=== PATIENT | female | born 1935 ===

== ENCOUNTER 2024-03-29 15:22 | Inpatient (IN) | payer MEDICARE, OTHER ==
[~2024-03-29] VITALS: Ht 152.4 cm; Wt 49.2 kg
[~2024-03-29 15:22] MED LIST: ARICEPT10 MG PO; ATIVAN 1MG T1 MG/TAB PO; D3-5050000 IU PO; FOSAMAX 70MG TA70 MG PO; INDERAL 20MG20 MG PO; IPRATROPIUM BROM3 M1 IH; NORCO 325 MG-7.1 TAB PO; PROAIR HFA0.09 MG/AC IH; RT ADVAIR 128 DISKUS IH; TYLENOL 500MG500 MG PO; ZOLOFT 100MG100 MG PO
[2024-03-29] MEDS ORDERED: cefTRIAXone 1 G in Water For Injection,Sterile 10 ML IV ONE (15:45)
[2024-03-29] MEDS ORDERED: Albuterol/Ipratropium 3 MG-0.5 MG/3 ML Neb Soln IH ONE (15:45)
[2024-03-29] MEDS ORDERED: NS 500 ML IV ONE (15:45)
[2024-03-29] MEDS ORDERED: methylPREDNISolone Sod Succ 125 MG/2 ML VIAL IV ONE (15:45)
[2024-03-29] MEDS ORDERED: Azithromycin 250 MG TAB PO ONE (15:45)
[2024-03-29] MEDS ORDERED: Azithromycin 500 MG in NS 250 ML IV ONE (16:00)
[2024-03-29 16:02] LABS: HEMOGLOBIN 10.3 g/dl (12.5-16.0); MEAN CELL VOLUME 97 fl (80.0-100.0); MEAN CORPUSCULAR HEMOGLOBIN 28 pg (27-31); MEAN CORPUSCULAR HGB CONC 29 g/dl (33.0-37.0); MEAN PLATELET VOLUME 9.7 fl (7.4-10.4); PLATELET COUNT 291 K/mm3 (130-400); RED BLOOD COUNT 3.64 M/mm3 (4.10-5.30); REDCELL DISTRIBUTION WIDTH-CV 16.6 % (11.5-14.5)
[2024-03-29 16:03] LABS: HEMATOCRIT 35.2 % (37.0-47.0)
[2024-03-29 16:17] LABS: ALBUMIN 2.7 g/dL (3.4-4.8); BILIRUBIN,TOTAL 0.7 mg/dL (0.2-1.2); CALCIUM 8.9 mg/dL (8.4-10.2); CREATININE, serum 3.4 mg/dL (0.57-1.11); TOTAL PROTEIN 7.7 g/dl (6.2-8.1)
[2024-03-29] MEDS ORDERED: oxyCODONE Oral Soln 5 MG/5 ML UD PO ONE (16:30)
--- NOTE | 2024-03-29 16:37 | NUR ---
Food Service Specialist consulted in the ED for patient who arrived in respiratory distress. Family considering options for care including comfort care. Patient's daughter and grandson are tearful and express they want to make the right decision. SW offered emotional support. Ultimately patient's family decided to transition to comfort care and allow patient to pass.
[2024-03-29] MEDS ORDERED: LORazepam 2 MG/ML 1 ML VIAL IV ONE (16:45)
[2024-03-29 16:49] LABS: BAND 2 % (0-10); BASOPHIL 1 % (0-2); LYMPHOCYTE 13 % (20.0-51.0); METAMYELOCYTE 1 % (0-0); NEUTROPHILS 79 % (42.0-75.2); NUCLEATED RED BLOOD CELL 5 (0-6)
[2024-03-29] MEDS ORDERED: Morphine Oral Concentrate 20 MG/ML UD SL ONE (17:00)
[2024-03-29] MEDS ORDERED: Morphine Oral Concentrate 20 MG/ML UD SL PRN (17:15)
[2024-03-29] MEDS ORDERED: Albuterol 0.083% Neb Soln 2.5 MG/3 ML UD IH PRN (17:15)
[2024-03-29] MEDS ORDERED: Ondansetron 4 MG/2 ML VIAL IV PRN (17:15)
[2024-03-29] MEDS ORDERED: Glycopyrrolate 0.2 MG/ML 1 ML VIAL IV PRN (17:15)
[2024-03-29] MEDS ORDERED: Carboxymethylcellulose PF Ophth 0.4 ML DROPPERETTE OP PRN (17:15)
[2024-03-29] MEDS ORDERED: LORazepam 2 MG/ML 1 ML VIAL IV PRN (17:15)
[2024-03-29] MEDS ORDERED: Atropine 1% Ophth Soln 2 ML BOTTLE SL PRN (17:15)
[2024-03-29] MEDS ORDERED: Scopolamine 1 MG Delivered 3-Day PATCH TD SCH (17:15)
[2024-03-29 18:25] VITALS: BP 118/77; PULSE 105; TEMP 99
[2024-03-29 18:40] VITALS: BP_SYST 125
[2024-03-29 19:43] VITALS: BP 125/56; PULSE 100; TEMP 98.1
--- NOTE | 2024-03-29 20:10 | NUR ---
DAUGHTER REQUESTS NO INFORMATION BE GIVEN TO DAUGHTER OLGA LIDIA
--- NOTE | 2024-03-29 20:21 | NUR ---
Patient arrived to room 309, via cart, from the ED with diagnosis of respiratory distress. Pt now on comfort cares. OxyMask at 5L/min. Non responsive to verbal or tactile stimuli. Respirations now at 20/min. Bilateral feet and ankles cool to touch with mottling. Rest of extremities warm to touch. Family members- daughter Rhonda, Rhonda's and son came in briefly to visit patient but have now left to go back to [facility]. Rhonda tearful and with many questions regarding patient's prognosis during bedside report. Questions answered and reassurance provided by oncoming nurse, Sharita and myself. Daughter requested that information not to be given to patient's granddaughter/great granddaughter Kavitha- educated patient on privacy passcode- verbalizes understanding. .
--- NOTE | 2024-03-30 00:43 | NUR ---
PT IS ON COMFORT CARE. ORAL CARE PERFORMED. PT REPOSTIONED.
--- NOTE | 2024-03-30 05:47 | NUR ---
PT REMAINS STABLE ON ROUNDS. MEDICATED FOR PAIN NEEDED. SCOPE PATCH BEHIND LEFT EAR. PT INCONT OF URINE X 4. TURNED REPOSITIONED Q2HR. NO SIGN OF DISTRESS AT THIS TIME. NO FAMILY AT BEDSIDE OVERNIGHT.
[2024-03-30] MEDS ORDERED: Lidocaine 4% Topical Patch TP SCH (09:00)
--- NOTE | 2024-03-30 09:17 | NUR ---
PATIENT RESTING IN BED WITH EYES CLOSED. AWAKENS TO NAME. IS NOT ALERT AND ORIENTED. PATIENT GRIMACES WITH REPOSITIONING. MORPHINE GIVEN PER NOV. LIDOCAINE PATCH APPLIED TO BACK. THIS NURSE ASSISTED PCT WITH BED CHANGE AND BED BATH. BED IN LOW POSITION. PATIENT STABLE ON RA. DOES NOT APPEAR DISTRESSED. CALL LIGHT WITHIN REACH. WILL MONITOR
--- NOTE | 2024-03-30 09:24 | NUR ---
THIS RN INSERTED 18F MICHEL AT THIS TIME. PATIENT IMMEDIATELY HAD GREATER THAN 400ML OF CLEAR, DARK YELLOW URINE.
--- NOTE | 2024-03-30 11:19 | NUR ---
PATIENT RESTING WITH EYES CLOSED. DOES NOT WAKE UP TO TOUCH OR VOICE AT THIS TIME. MICHEL DRAINING DEPENDENTLY WITH DARK ORANGE URINE IN BAG. DOES NOT APPEAR TO BE IN DISTRESS. WILL MONITOR
--- NOTE | 2024-03-30 13:52 | NUR ---
harvest worker received a consult of pt being on comfort care. Pt is not alert and oriented. ANITA called daughter, Rhonda to discuss intake information. She reports to live with her and pt in [place]. Rhonda states that she has been pt's caregiver for 7 years. She reports pt's PCP as Aga Holley (?) and obtains medications from [facility] and [facility] with no issues. She reports that they do not have a DPOA-HC and pt has other siblings. She reports that she has been pt's hospital unit coordinator, done her finances, and has pt's consent for this. Rhonda was tearful and emotional during conversation. SW allowed her to vent and express needs. Rhonda reports what she really wants, is to take pt home. She states she previously was in contact with [facility] for home services. ANITA confirmed with Rhonda she would like to take pt home with [facility]. Rhonda consented to this and states they already turn pt and change her. She requests pt to have oxygen and remain on her comfort medications. ANITA states she will speak with [facility] and see what can be accomplish with it being 30 of March. Rhonda verbalized understanding and was thankful. ANITA faxed referral to [facility] [phone] and called to discuss referral. ANITA spoke with Underwear Trimmer Jamia Calvo who can accept pt and advises Shira [phone] would reach out to discuss next steps. ANITA receieved a call from Shira and provided the update. She reports that the equipment (oxygen and hospital bed) come out of [place] and this will take time for it to arrive today. She reports intending to have it at pt's house today and need family there for set up. She requests medications sent to [facility] in [place]: Roxanol, Ativan, and Levsin. She states she will reach out to Rhonda and discuss all information. ANITA updated JAYY Lewis and Dr. Salinas of the above. [facility] did not pull up on hospital e-scripts. ANITA obtained fax number as [phone]. ANITA spoke with Shira again who briefly talked to Rhonda who sounded all over the place. ANITA called Rhonda later who reports she just picked up her son from [place] and would like this to be resumed tomorrow due to needing more time. ANITA advised they can wait to discharge tomorrow and she shound call Alexis Silva to inform her. Rhonda was informed equipment could still arrive today if they allow. Rhonda states she will call JAYY Silva. ANITA had called [facility] to establish transport, they are unavailable today; but could do tomorrow ANITA informed RN and of change in plans and for discharge tomorrow. ANITA spoke with JAYY Silva who was understanding and will work with Rhonda to continue set up. Discharge Plan: home with [facility] tomorrow
--- NOTE | 2024-03-30 18:04 | NUR ---
PATIENT GROANING, GRIMACING AND TAKING OFF GOWN. ATIVAN ADMINISTERED PER NOV.
--- NOTE | 2024-03-31 07:22 | NUR ---
PATIENT RESTING IN BED. ROLLING SIDE TO SIDE AND APPEARS UNCOMFORTABLE. MORPHINE ADMINISTERED TO PROVIDE COMFORT. PATIENT IS AWAKE AND ALERT, BUT NOT ORIENTED. WILL MONITOR
[2024-03-31] MEDS ORDERED: ROXANOL 20MG20 MG/ML SL (09:52)
[2024-03-31] MEDS ORDERED: SYSTANE 0.4%-0.1 SOL OU (09:52)
[2024-03-31] MEDS ORDERED: TRANSDERM-0.5 MG/21 TD (09:52)
[2024-03-31] MEDS ORDERED: DULCOLAX S10 MG/SUPP RC (09:52)
[2024-03-31] MEDS ORDERED: LORAINT PO (09:52)
--- NOTE | 2024-03-31 11:00 | NUR ---
THIS RN PROVIDED PATIENT'S DAUGHTER WITH DISCHARGE EDUCATION AND INSTRUCTIONS. ALL QUESTIONS ANSWERED. AWAITING TRANSPORTATION FROM EMS.
--- NOTE | 2024-03-31 13:44 | NUR ---
Reel Cart Operator met with patient's daughter, Rhonda and her , Landon (ph#[phone]) at bedside to follow up on discharge plan. Rhonda advised she still wants to get patient home today with [facility]. ANITA contacted Franco at [facility] and she advised they can admit today. ANITA faxed clinicals and discharge orders. ANITA also faxed medications to [facility] in [place]. ANITA contacted [facility] to confirm they were received. Franco requested a late transfer to allow time to have medical equipment delievered. ANITA contacted [facility] out of [place] and scheduled a 1600 machine pecan picker time. ANITA provided time to Rhonda then placed EMS forms on patient's discharge packet. Discharge Plan: Home with [facility]
--- NOTE | 2024-03-31 15:49 | NUR ---
Patient taken by EMS to home. IV removed, tip intact. Gauze and coban applied. No further needs expressed.
== END 2024-03-31 15:50 | disposition home or self-care (01) | DRG 951 ==
LOC: COL.ER 15:22 → MEDICAL 17:51
PROVIDERS: Personal Emergency Response Attendant; ADMIT Internal Medicine
DX: Z51.5 Encounter for palliative care (principal); J96.01 Acute respiratory failure with hypoxia; N17.9 Acute kidney failure, unspecified; Z66 Do not resuscitate; J44.9 Chronic obstructive pulmonary disease, unspecified; E87.5 Hyperkalemia; I10 Essential (primary) hypertension; M81.0 Age-related osteoporosis without current pathological fracture; F03.90 Unspecified dementia, unspecified severity, without behavioral disturbance, psychotic disturbance, mood disturbance, and anxiety
CPT/HCPCS: J0456; J0696; J2060; J2919; J7040; J7050